=== PATIENT | male | born 1970 ===

== ENCOUNTER 2024-05-30 13:49 | Outpatient (AMB) | payer OTHER, SELFPAY ==
[2024-05-30 13:51] VITALS: BP 110/74; PULSE 122; O2SAT 96; BMI 42.4
--- NOTE | 2024-05-30 13:51 | MHC.OFFVIS ---
Vital Signs 05/30/24 13:51 Height 5 ft 10 in Weight 295 lb 6.711 oz BMI 42.4 BP 110/74 Blood Pressure Location Lt brachial Position Sitting Pulse 122 H Pulse Source Doppler Pulse Oximetry (%) 96 Oxygen Delivery Method Room Air Intake Visit Reasons: Obstructive sleep apnea Electrical And Electronic Assembler Required: Yes Electrical And Electronic Assembler Name: Carol Wilberto Cazares Allergies No Known Allergies Allergy (Verified 05/30/24 13:59) HPI HPI Obstructive sleep apnea: Details: 53-year-old gentleman with underlying severe obstructive sleep apnea intolerant of CPAP therapy referred for evaluation. Patient states that he has tried using CPAP prior and was not able to be compliant with it. His last sleep studies from 2019. He continues to have snoring and daytime sleepiness. [facility] Social History (Updated 05/30/24 @ 14:00 by Carol Bryant [facility]) Patient Tobacco Use Status: Never used Tobacco Review of Systems Const Reports daytime sleepiness, Denies excessive sweating, Denies fatigue, Denies fever(s), Denies lethargy, Denies malaise, Denies night sweats, Denies snoring and Denies weight loss Eyes Denies blurry vision and Denies itchy eyes ENT Denies nasal congestion, Denies post nasal drip, Denies sinus pain, Denies sinus pressure and Denies other ( Thrush) Card Denies chest pain, Denies pedal edema, Denies dyspnea, Denies orthopnea and Denies paroxysmal nocturnal dyspnea Resp Denies cough, Denies hemoptysis, Denies excessive phlegm production, Denies dyspnea, Denies snoring and Denies wheezing GI Denies abdominal pain and Denies heartburn Musc Denies myalgias, Denies arthralgias and Denies joint swelling Skin/Breast Denies rash Neuro Denies memory loss and Denies seizure-like activity Psych Denies abnormal sleep pattern, Denies anxiety and Denies memory loss Endo Denies excessive sweating, Denies fatigue and Denies heat intolerance Aaron/Lymph Denies easy bruising Aller/Immun Denies itchy eyes, Denies seasonal rhinorrhea and Denies wheezing Physical Exam Vital Signs: Last Vital Signs Pulse 122 H 05/30/24 13:51 BP 110/74 05/30/24 13:51 Pulse Ox 96 05/30/24 13:51 Oxygen Delivery Method Room Air 05/30/24 13:51 BMI result Body Mass Index 42.4 Const General: no acute distress and alert Nutritional Appearance: obese Orientation/consciousness: Other orientation findings ( oriented) HEENT Head: Yes atraumatic Eyes General: appearance normal, both eyes and all related structures Sclerae: sclerae normal EOM: EOMs intact bilaterally Neck Neck: Yes supple Lymphatic: no lymphadenopathy noted Resp Effort & Inspection: normal respiratory effort and no use of accessory muscles Auscultation: clear to auscultation bilaterally Cardio Rate: regular rate Rhythm: regular rhythm Heart sounds: no gallops, no murmurs and no rubs Skin General skin exam: other ( warm) Extrem General: No clubbing, No cyanosis and No edema Assessment & Plan Assessment & Plan (1) KAITLYN (obstructive sleep apnea): Code(s): G47.33 - Obstructive sleep apnea (adult) (pediatric) Category: Medical Plan: Underlying severe obstructive sleep apnea intolerant of CPAP therapy. Utilization of jaw advancement device discussed with the patient. Coding Level of Care Code Est Pt Level 3 (09460) Diagnoses KAITLYN (obstructive sleep apnea) G47.33
== END 2024-05-30 14:17 | disposition home or self-care (01) ==
PROVIDERS: PCP Family Medicine; Visit Provider Internal Medicine Pulmonary Disease
DX: G47.33 Obstructive sleep apnea (adult) (pediatric) (principal)
CPT/HCPCS: 99213